=== PATIENT | female | born 1990 | race African-American/Black ===

== ENCOUNTER 2018-09-19 15:28 | Emergency (ER) | payer MEDICAID, OTHER ==
[~2018-09-19] VITALS: Ht 165.1 cm; Wt 78.5 kg
[2018-09-19 16:00] VITALS: BP 106/58
== END 2018-09-19 20:58 | disposition home or self-care (01) ==
LOC: ER 15:39
DX: S30.860A Insect bite (nonvenomous) of lower back and pelvis, initial encounter (principal); L03.317 Cellulitis of buttock; W57.XXXA Bitten or stung by nonvenomous insect and other nonvenomous arthropods, initial encounter; Y93.89 Activity, other specified; Y99.8 Other external cause status; Y92.89 Other specified places as the place of occurrence of the external cause